=== PATIENT | male | born 1985 | race American Indian/Alaskan Native ===

== ENCOUNTER 2016-12-27 09:28 | Emergency (ER) | payer OTHER ==
[2016-12-27 10:07] VITALS: BP 145/111
== END 2016-12-27 10:00 | disposition left against medical advice (07) ==
LOC: ED 09:28
DX: R56.9 Unspecified convulsions (principal); Z53.21 Procedure and treatment not carried out due to patient leaving prior to being seen by health care provider

== ENCOUNTER 2017-03-06 16:29 | Emergency (ER) | payer OTHER ==
[2017-03-06 17:46] VITALS: BP 154/107
[2017-03-06 18:43] LABS: Bilirubin,Urine NEG (Negative); Blood,Urine SM (Negative); Ketones,Urine NEG (Negative); Leukocyte Esterase,Urine NEG (Negative); Nitrite,Urine NEG (Negative); Urobilinogen,Urine < 2.0 mg/dL (<2.0)
[2017-03-06 18:56] LABS: Hematocrit 30.5 % (35.5-45.6); Hemoglobin 9.9 gm/dl (11.8-15.2); Mean Corpuscular HGB Conc 33 % (32-34); Mean Corpuscular Volume 77 fl (84-94); Platelet Count 394 K/mm3 (140-440); Red Blood Count 3.95 M/mm3 (3.65-5.03); White Blood Count 6.3 K/mm3 (4.5-11.0)
[2017-03-06 18:58] LABS: Mean Corpuscular Hemoglobin 25 pg (28-32); Red Cell Distribution Width 25.5 % (13.2-15.2)
[2017-03-06 19:27] LABS: Anion Gap 28 mmol/L; BUN/Creatinine Ratio 7.27; Blood Urea Nitrogen 8 mg/dL (9-20); Calcium 9.6 mg/dL (8.4-10.2); Carbon Dioxide 19 mmol/L (22-30); Chloride 99.4 mmol/L (98-107); Glucose 115 mg/dL (75-100); Potassium 4.4 mmol/L (3.6-5.0); Sodium 142 mmol/L (137-145)
[2017-03-06 19:54] LABS: Basophils % (Manual) 0 % (0.0-1.8); Blastocytes % (Manual) 0 %
[2017-03-06 19:55] LABS: Anisocytosis 2+; Diff Status Complete; Microcytosis Few
== END 2017-03-07 00:10 | disposition left against medical advice (07) ==
LOC: ED 16:29
DX: M62.81 Muscle weakness (generalized) (principal); K21.9 Gastro-esophageal reflux disease without esophagitis; I10 Essential (primary) hypertension; F12.90 Cannabis use, unspecified, uncomplicated; F43.10 Post-traumatic stress disorder, unspecified; Z87.891 Personal history of nicotine dependence; Z53.21 Procedure and treatment not carried out due to patient leaving prior to being seen by health care provider
CPT/HCPCS: 36415; 80048; 81001; 85007; 85025

== ENCOUNTER 2020-04-26 01:47 | Emergency (ER) | payer OTHER ==
[2020-04-26] MEDS ORDERED: levETIRAcetam 1000 MG/NS 0.75% 1,000 MG/100 ML BAG IV ONE (03:30)
--- NOTE | 2020-04-27 16:29 | Cat Scan Report ---
CT HEAD WITHOUT CONTRAST INDICATION / CLINICAL INFORMATION: Seizure, with a history of previous seizures.. TECHNIQUE: All CT scans at this location are performed using CT dose reduction for ALARA by means of automated e xposure control. COMPARISON: CT dated 02/03/16 FINDINGS: HEMORRHAGE: None. EXTRA-AXIAL SPACES: Normal in size and morphology for the patient's age. VENTRICULAR SYSTEM: Normal in size and morphology for the patient's age. CEREBRAL PARENCHYMA: Encephalomalacia of the inferior right frontal lobe is unchanged. No acute wily torial infarct. MIDLINE SHIFT / HERNIATION: None. CEREBELLUM / BRAINSTEM: No significant abnormality. ORBITS: Normal as visualized. SOFT TISSUES: No significant abnormality. SKULL: No significant abnormality. PARANASAL SINUSES / MASTOID AIR CELLS: Normal as visualized. ADDITIONAL FINDINGS: None. IMPRESSION: 1. No acute intracranial abnormality. 2. Encephalomalacia of the inferior right frontal lobe, unchanged. Signer Name: Ana Paula Rossi MD Signed: 04/26/2020 4:51 AM Workstation Name: [id number]
--- NOTE | 2020-04-27 17:55 | Cat Scan Report ---
CT CERVICAL SPINE: 04/26/2020 INDICATION / CLINICAL INFORMATION: ETOH. COMPARISON: None available. FINDINGS: CT images of the cervical spine were obtained. Images are evaluated in the axial, coronal, and sagitt al planes. This exam is provided for interpretation on 04/27/2020 at 1607 hours. There is no evidence of acute abnormality. Slight reversal of cervical lordosis is centered at the C5 level. Some degenerative disc space narrowing and facet degenerative changes are present in the mid cervical spine. Incidental note is made of some dystrophic calcification in the region of the right neural foramina a t the C5-6 and C6-7 levels. : . CRANIOCERVICAL JUNCTION: Unremarkable. PARASPINAL STRUCTURES: No acute abnormality. IMPRESSION: No acute abnormality. All CT scans at this location are performed using dose reduction to ALARA by means of automated expos ure control. Signer Name: Theodore Villasenor MD Signed: 04/27/2020 5:50 PM Workstation Name: [id number]
[2020-05-02 12:17] LABS: BUN/Creatinine Ratio 10; Blood Urea Nitrogen 8 mg/dL (9-20)
[2020-05-02 12:18] LABS: Calcium 9.1 mg/dL (8.4-10.2)
[2020-05-02 13:07] LABS: Hematocrit 32.8 % (35.5-45.6); Hemoglobin 10.6 gm/dl (11.8-15.2); Mean Corpuscular HGB Conc 32 % (32-34); Mean Corpuscular Volume 79 fl (84-94); Red Blood Count 4.16 M/mm3 (3.65-5.03); Red Cell Distribution Width 20.7 % (13.2-15.2)
[2020-05-02 13:08] LABS: Eosinophils # (Auto) 0.1 K/mm3 (0.0-0.4); Eosinophils % (Auto) 1.6 % (0.0-4.3); Lymphocytes # (Auto) 2.1 K/mm3 (1.2-5.4); Lymphocytes % (Auto) 46.5 % (13.4-35.0); Monocytes # (Auto) 0.4 K/mm3 (0.0-0.8); Monocytes % (Auto) 8.1 % (0.0-7.3); Platelet Count 245 K/mm3 (140-440)
[2020-05-03 11:28] LABS: Creatine Kinase MB 3.9 ng/mL (0.0-4.0)
== END 2020-04-26 15:00 | disposition home or self-care (01) ==
LOC: ED 01:47
DX: G40.909 Epilepsy, unspecified, not intractable, without status epilepticus (principal)
CPT/HCPCS: 36415; 70450; 72125; 80048; 82550; 82553; 83735; 85025; 93005; 99284; J1953; 80320; G0480

== ENCOUNTER 2020-05-11 20:22 | Emergency (ER) | payer OTHER ==
[2020-05-11] MEDS ORDERED: levETIRAcetam 1000 MG/NS 0.75% 1,000 MG/100 ML BAG IV ONE (20:33)
[2020-05-11] MEDS ORDERED: SODIUM CHLORIDE 0.9% 1000 ML 1,000 ML IV ONE (20:33)
[2020-05-11] MEDS ORDERED: LORazepam 2 MG/ML VIAL IV PRN ×3 (20:35)
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
[2020-05-11 21:25] LABS: Hematocrit 34.3 % (35.5-45.6); Hemoglobin 11.1 gm/dl (11.8-15.2); Mean Corpuscular HGB Conc 32 % (32-34); Mean Corpuscular Volume 80 fl (84-94); Platelet Count 221 K/mm3 (140-440); Red Blood Count 4.32 M/mm3 (3.65-5.03)
[2020-05-11 21:38] LABS: Red Cell Distribution Width 20.6 % (13.2-15.2)
[2020-05-11 21:45] LABS: Alanine Aminotransferase 39 units/L (7-56); Albumin 4.4 g/dL (3.9-5); BUN/Creatinine Ratio 22; Blood Urea Nitrogen 26 mg/dL (9-20); Calcium 8.6 mg/dL (8.4-10.2); Hemolysis Index 14
[2020-05-11 22:40] LABS: Amphetamine Screen,Urine PRESUMPTIVE NEGATIVE; Benzodiazepines Screen,Urine PRESUMPTIVE NEGATIVE; Cannabinoid Screen,Urine PRESUMPTIVE NEGATIVE; Cocaine Screen,Urine PRESUMPTIVE NEGATIVE; Methadone Screen,Urine PRESUMPTIVE NEGATIVE; Opiate Screen,Urine PRESUMPTIVE NEGATIVE
[2020-05-11 22:50] LABS: Bilirubin,Urine NEG (Negative); Blood,Urine NEG (Negative); Color,Urine Straw (Yellow); Protein,Urine <15 mg/dL mg/dL (Negative); RBC,Urine < 1.0 /HPF (0.0-6.0); Urobilinogen,Urine < 2.0 mg/dL (<2.0)
--- NOTE | 2020-05-11 22:53 | Cat Scan Report ---
CT head/brain wo con INDICATION / CLINICAL INFORMATION: Seizure. TECHNIQUE: Axial CT imaging of the brain was obtained without contrast. Coronal and sagittal reformatted imaging obtained and reviewed. All CT scans at this location are performed using CT dose reduction for ALAR A by means of automated exposure control. COMPARISON: Prior head CT 04/26/2020 FINDINGS: No intracranial hemorrhage, mass, or midline shift is noted. No extra-axial fluid collection or sugge stion of acute territorial infarction. The ventricular system and basilar cisterns are unremarkable. There is mild to moderate cerebral and cerebellar atrophy, unchanged from prior exam. There is focal encephalomalacia in the inferior right frontal lobe unchanged from prior exam. Visualized paranasal sinuses and mastoid air cells are well aerated and grossly clear. No calvarial a bnormality noted. No soft tissue abnormality. IMPRESSION: 1. No acute intracranial abnormality. No interval change. Signer Name: Cristy Bowen MD Signed: 05/11/2020 10:48 PM Workstation Name: [id number]
[2020-05-11 23:25] LABS: Basophils % (Manual) 0 % (0.0-1.8); Eosinophils % (Manual) 0 % (0.0-4.3); Total Cells Counted 100
[2020-05-11 23:26] LABS: Anisocytosis 1+; Hypochromasia 1+; Ovalocytes Rare; Platelet Estimate Consistent w Auto
[2020-05-11] MEDS ORDERED: THIAMINE 100 MG, FOLIC ACID 1 MG, MULTIPLE VITAMIN INJ, ADULT 10 ML in SODIUM CHLORIDE ... IV ONE (23:43)
[2020-05-12 12:39] VITALS: BP 129/76
== END 2020-05-12 15:30 | disposition home or self-care (01) ==
LOC: ED 20:22
DX: R56.9 Unspecified convulsions (principal); F10.129 Alcohol abuse with intoxication, unspecified; I10 Essential (primary) hypertension; K21.9 Gastro-esophageal reflux disease without esophagitis; F43.11 Post-traumatic stress disorder, acute; F17.200 Nicotine dependence, unspecified, uncomplicated; F12.10 Cannabis abuse, uncomplicated; Z79.899 Other long term (current) drug therapy
CPT/HCPCS: 36415; 36569; 70450; 80053; 80307; 81001; 83735; 84100; 85007; 85025; 96365; 96367; 96375; 99285; J1953; J2060; J3411; J7030; 80320; G0480

== ENCOUNTER 2020-05-13 02:00 | Emergency (ER) | payer OTHER ==
--- NOTE | 2020-05-13 05:37 | Cat Scan Report ---
CT head/brain wo con INDICATION / CLINICAL INFORMATION: Recurring falls, E.T.O.H. on board, now with head pain.. TECHNIQUE: Axial CT imaging of the brain was obtained without contrast. Coronal and sagittal reformatted imaging obtained and reviewed. All CT scans at this location are performed using CT dose reduction for ALAR A by means of automated exposure control. COMPARISON: 05/11/[address] FINDINGS: No intracranial hemorrhage, mass, or midline shift. No extra-axial fluid collection or suggestion of acute infarction. Ventricular system and basilar cisterns are unremarkable. Focal encephalomalacia seen in the inferior right frontal lobe is unchanged. Prominent cerebral and c erebellar atrophy for the patient's young age of 34 years. Visualized paranasal sinuses and mastoid air cells are well aerated and clear. No calvarial fracture. IMPRESSION: 1. No acute intracranial abnormality. Signer Name: Cristy Bowen MD Signed: 05/13/2020 5:32 AM Workstation Name: [id number]
--- NOTE | 2020-05-13 05:39 | Cat Scan Report ---
CT cervical spine wo con INDICATION / CLINICAL INFORMATION: Recurring falls, E.T.O.H. on board, now with neck pain.. TECHNIQUE: Axial CT imaging of the cervical spine was obtained without contrast. Coronal and sagittal reformatte d imaging obtained and reviewed. All CT scans at this location are performed using CT dose reduction for ALARA by means of automated exposure control. COMPARISON: Prior CT cervical spine 04/26/2020 FINDINGS: No cervical spine fracture is noted. Alignment is normal. Mild degenerative disc disease is present at C5-C6. Mild spondylitic change noted throughout the mid cervical spine. Paravertebral soft tissues are unremarkable. Visualized lung apices are clear. IMPRESSION: 1. No cervical spine fracture or traumatic malalignment. 2. Mild degenerative disc disease and spondylitic change of the mid cervical spine. Signer Name: Cristy Bowen MD Signed: 05/13/2020 5:35 AM Workstation Name: [id number]
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
[2020-05-13 09:41] LABS: Basophils % (Auto) 0.3 % (0.0-1.8); Eosinophils % (Auto) 0.5 % (0.0-4.3); Hematocrit 30.9 % (35.5-45.6); Hemoglobin 10.5 gm/dl (11.8-15.2); Lymphocytes # (Auto) 1.4 K/mm3 (1.2-5.4); Lymphocytes % (Auto) 17.5 % (13.4-35.0); Mean Corpuscular HGB Conc 34 % (32-34); Mean Corpuscular Volume 77 fl (84-94); Monocytes # (Auto) 0.7 K/mm3 (0.0-0.8); Monocytes % (Auto) 9.2 % (0.0-7.3); Platelet Count 207 K/mm3 (140-440)
[2020-05-13 09:49] LABS: Red Cell Distribution Width 20.2 % (13.2-15.2)
[2020-05-13 09:59] LABS: Alanine Aminotransferase 29 units/L (7-56); Albumin 4.2 g/dL (3.9-5); BUN/Creatinine Ratio 16; Blood Urea Nitrogen 13 mg/dL (9-20); Calcium 9.3 mg/dL (8.4-10.2); Hemolysis Index 6
[2020-05-13] MEDS ORDERED: THIAMINE 100 MG, FOLIC ACID 1 MG, MULTIPLE VITAMIN INJ, ADULT 10 ML in SODIUM CHLORIDE ... IV ONE (10:30)
[2020-05-13 15:37] VITALS: BP 165/93
== END 2020-05-13 19:30 | disposition home or self-care (01) ==
LOC: ED 02:00
DX: S09.90XA Unspecified injury of head, initial encounter (principal); F10.129 Alcohol abuse with intoxication, unspecified; I10 Essential (primary) hypertension; K21.9 Gastro-esophageal reflux disease without esophagitis; R56.9 Unspecified convulsions; F17.200 Nicotine dependence, unspecified, uncomplicated; Z98.890 Other specified postprocedural states; Z79.899 Other long term (current) drug therapy; W06.XXXA Fall from bed, initial encounter; Y93.89 Activity, other specified; Y92.89 Other specified places as the place of occurrence of the external cause; Y99.8 Other external cause status
CPT/HCPCS: 36415; 70450; 72125; 80053; 85025; 96365; 96366; 99285; J3411; J7030; 80320; G0480

== ENCOUNTER 2020-05-24 03:47 | Emergency (ER) | payer OTHER ==
[2020-05-24] MEDS ORDERED: THIAMINE 100 MG, FOLIC ACID 1 MG, MULTIPLE VITAMIN INJ, ADULT 10 ML in SODIUM CHLORIDE ... IV ONE (03:55)
[2020-05-24] MEDS ORDERED: levETIRAcetam 1000 MG/NS 0.75% 1,000 MG/100 ML BAG IV ONE (03:55)
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
[2020-05-24 04:49] LABS: Basophils # (Auto) 0.1 K/mm3 (0.0-0.1); Basophils % (Auto) 2.3 % (0.0-1.8); Eosinophils # (Auto) 0.1 K/mm3 (0.0-0.4); Eosinophils % (Auto) 1.6 % (0.0-4.3); Hematocrit 33.6 % (35.5-45.6); Hemoglobin 10.5 gm/dl (11.8-15.2); Lymphocytes # (Auto) 1.9 K/mm3 (1.2-5.4); Mean Corpuscular HGB Conc 31 % (32-34); Mean Corpuscular Volume 80 fl (84-94); Monocytes # (Auto) 0.3 K/mm3 (0.0-0.8); Monocytes % (Auto) 4.1 % (0.0-7.3); Platelet Count 306 K/mm3 (140-440); Red Blood Count 4.23 M/mm3 (3.65-5.03)
[2020-05-24 04:53] LABS: Red Cell Distribution Width 22.5 % (13.2-15.2)
[2020-05-24 05:01] LABS: BUN/Creatinine Ratio 13; Blood Urea Nitrogen 10 mg/dL (9-20); Calcium 8.7 mg/dL (8.4-10.2); Hemolysis Index 3
[2020-05-24] MEDS ORDERED: levETIRAcetam 500 MG TAB PO ONE (05:16)
[2020-05-24 19:03] VITALS: BP 156/104
== END 2020-05-24 19:13 | disposition home or self-care (01) ==
LOC: ED 03:47
DX: G40.909 Epilepsy, unspecified, not intractable, without status epilepticus (principal); F10.129 Alcohol abuse with intoxication, unspecified; K21.9 Gastro-esophageal reflux disease without esophagitis; F43.10 Post-traumatic stress disorder, unspecified; F17.200 Nicotine dependence, unspecified, uncomplicated; Z91.14 Patient's other noncompliance with medication regimen; Z79.899 Other long term (current) drug therapy
CPT/HCPCS: 36415; 80048; 83735; 85025; 96374; 99284; J3411; J7030; 80320; G0480

== ENCOUNTER 2020-06-11 16:53 | Emergency (ER) | payer OTHER ==
[2020-06-11] MEDS ORDERED: THIAMINE 100 MG, FOLIC ACID 1 MG, MULTIPLE VITAMIN INJ, ADULT 10 ML in SODIUM CHLORIDE ... IV ONE (17:48)
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
[2020-06-11] MEDS ORDERED: levETIRAcetam 1000 MG/NS 0.75% 1,000 MG/100 ML BAG IV ONE (18:00)
[2020-06-11 19:34] LABS: Basophils % (Auto) 0.6 % (0.0-1.8); Eosinophils % (Auto) 0.1 % (0.0-4.3); Hematocrit 31.9 % (35.5-45.6); Hemoglobin 10.2 gm/dl (11.8-15.2); Lymphocytes # (Auto) 2.6 K/mm3 (1.2-5.4); Lymphocytes % (Auto) 35.9 % (13.4-35.0); Mean Corpuscular HGB Conc 32 % (32-34); Mean Corpuscular Volume 80 fl (84-94); Monocytes # (Auto) 0.6 K/mm3 (0.0-0.8); Monocytes % (Auto) 7.7 % (0.0-7.3); Platelet Count 264 K/mm3 (140-440); Red Blood Count 3.98 M/mm3 (3.65-5.03)
[2020-06-11 19:44] LABS: Red Cell Distribution Width 22.8 % (13.2-15.2)
[2020-06-11 19:52] LABS: BUN/Creatinine Ratio 16; Blood Urea Nitrogen 13 mg/dL (9-20); Hemolysis Index 3
--- NOTE | 2020-06-11 20:14 | Cat Scan Report ---
CT head/brain wo con INDICATION / CLINICAL INFORMATION: 34 years Male; seizure. TECHNIQUE: Routine CT head without contrast. All CT scans at this location are performed using CT dos e reduction for ALARA by means of automated exposure control. COMPARISON: 07/13/2019 FINDINGS: BRAIN / INTRACRANIAL CONTENTS: Subtle malacia seen in the anterior, inferior right frontal lobe-would question history of prior trauma. Similar findings seen on prior. Otherwise, no acute hemorrhage, mass effect, midline shift, hydrocephalus, or acute, large territori al infarct. Mild, diffuse cerebral atrophy seen for a patient this age. No significant white matter abnormality seen. CRANIOCERVICAL JUNCTION: No significant abnormality. ORBITS: No significant abnormality of visualized orbits. SINUSES / MASTOIDS: No significant abnormality in the visualized paranasal sinuses or mastoid air brandi ls. ADDITIONAL FINDINGS: None. IMPRESSION: 1. No focal mass, hemorrhage, hydrocephalus, or acute, large territorial infarct. Signer Name: Ozzie Higginbotham MD, III Signed: 06/11/2020 8:09 PM Workstation Name: [id number]
[2020-06-11] MEDS ORDERED: LORazepam 2 MG/ML VIAL IV ONE (20:35)
[2020-06-11] MEDS ORDERED: ZIPRASIDONE MESYLATE 20 MG VIAL IM ONE ×2 (20:49→20:54)
[2020-06-11] MEDS ORDERED: WATER FOR INJ Sterile (PF) 10 ML ONE (20:49)
[2020-06-12 12:47] VITALS: BP 160/100
== END 2020-06-12 13:36 | disposition home or self-care (01) ==
LOC: ED 16:53
DX: R56.9 Unspecified convulsions (principal); F10.129 Alcohol abuse with intoxication, unspecified; I10 Essential (primary) hypertension; K21.9 Gastro-esophageal reflux disease without esophagitis; F12.10 Cannabis abuse, uncomplicated; Z98.890 Other specified postprocedural states; Z79.899 Other long term (current) drug therapy
CPT/HCPCS: 36415; 70450; 80048; 85025; 96365; 96366; 96367; 96372; 96375; 99284; J1953; J2060; J3411; J3486; J7030; 80320; G0480

== ENCOUNTER 2020-06-21 15:46 | Emergency (ER) | payer OTHER ==
[2020-06-21 17:04] VITALS: BP 139/95
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
--- NOTE | 2020-06-21 18:03 | Cat Scan Report ---
CT BRAIN: 06/21/2020 INDICATION / CLINICAL INFORMATION: Trauma.. COMPARISON: 06/11/2020 FINDINGS: BRAIN/INTRACRANIAL STRUCTURES: Unenhanced CT images of the brain were obtained and compared to the pr ior exam from 06/11/2020. There has been no change. Again seen is pronounced diffuse cerebral and cerebellar atrophy. Chronic encephalomalacia in the rig ht inferior temporal lobe is again noted. There is no evidence of acute hepatic injury, hemorrhage, or mass. There are no abnormal extra-axial fluid collections. EXTRACRANIAL STRUCTURES: Unremarkable. IMPRESSION: No acute abnormality. Prominent diffuse cerebral atrophy for age. No change when compared to 06/11/2020. All CT scans at this location are performed using dose reduction to ALARA by means of automated expos ure control. Signer Name: Theodore Villasenor MD Signed: 06/21/2020 5:58 PM Workstation Name: [id number]
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
[2020-06-21 18:15] LABS: BUN/Creatinine Ratio 14; Blood Urea Nitrogen 11 mg/dL (9-20); Calcium 8.8 mg/dL (8.4-10.2); Hemolysis Index 3
== END 2020-06-21 18:35 | disposition home or self-care (01) ==
LOC: ED 15:46
DX: S50.811A Abrasion of right forearm, initial encounter (principal); S09.90XA Unspecified injury of head, initial encounter; F10.920 Alcohol use, unspecified with intoxication, uncomplicated; I10 Essential (primary) hypertension; K21.9 Gastro-esophageal reflux disease without esophagitis; G40.909 Epilepsy, unspecified, not intractable, without status epilepticus; F12.10 Cannabis abuse, uncomplicated; Z79.899 Other long term (current) drug therapy; W18.30XA Fall on same level, unspecified, initial encounter; Y93.89 Activity, other specified; Y92.89 Other specified places as the place of occurrence of the external cause; Y99.8 Other external cause status
CPT/HCPCS: 36415; 70450; 72125; 80048; 80320; 82550; 83735; 93005; G0480

== ENCOUNTER 2022-03-08 16:25 | Emergency (ER) | payer OTHER ==
[2022-03-08] MEDS ORDERED: levETIRAcetam 1000 MG/NS 0.75% 1,000 MG/100 ML BAG IV ONE (18:30)
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
--- NOTE | 2022-03-08 19:18 | Cat Scan Report ---
CT head/brain wo con INDICATION / CLINICAL INFORMATION: 36 years Male; seizure d/o; L sided headache s/p fall, head traum. TECHNIQUE: Routine CT head without contrast. All CT scans at this location are performed using CT dos e reduction for ALARA by means of automated exposure control. COMPARISON: 06/11/2020 FINDINGS: BRAIN / INTRACRANIAL CONTENTS: Encephalomalacia is seen anteromedially in the right frontal lobe, inv olving gyrus rectus and the adjacent orbital gyral. Would question prior trauma. Similar findings see n on prior. No acute hemorrhage, mass effect, midline shift, hydrocephalus, or acute, large territori al infarct. Moderate cerebral and cerebellar atrophy. Mild to moderate degree of hippocampal atrophy suggested bi laterally. There are [id number] areas of decreased attenuation in the white matter of the cerebral hemisph eres. These are nonspecific findings and may be related to microangiopathy (hypertension, diabetes, a therosclerosis), given the patient's age. It might be difficult to evaluate for small areas of ischem ia without diffusion imaging by MRI. CRANIOCERVICAL JUNCTION: No significant abnormality. ORBITS: No significant abnormality of visualized orbits. SINUSES / MASTOIDS: Mucous tension cyst/polyp is seen in the left maxillary antrum. Mild mucosal thic kening seen in the left mastoids. ADDITIONAL FINDINGS: Atherosclerotic disease is seen in the anterior and posterior circulation. IMPRESSION: 1. No focal mass, hemorrhage, hydrocephalus, or acute, large territorial infarct. Signer Name: Ozzie Higginbotham MD, III Signed: 03/08/2022 7:14 PM Workstation Name: [id number]
--- NOTE | 2022-03-08 19:21 | Cat Scan Report ---
CT cervical spine wo con INDICATION / CLINICAL INFORMATION: 36 years Male; seizure d/o; L sided neck s/p fall, neck trauma. TECHNIQUE: Axial CT images of the cervical spine were obtained. Sagittal and coronal reformatted images were pr oduced. All CT scans at this location are performed using CT dose reduction for ALARA by means of aut omated exposure control. COMPARISON: 06/21/2020 FINDINGS: POST-SURGICAL CHANGES: None. ALIGNMENT: No significant abnormality. VERTEBRAE: No signs of fracture. Vertebral bodies are grossly normal in height throughout. Moderate to marked osseous foraminal narrowing seen on the left at C5-6. Mild findings seen at C4-5 a nd C6-7. Moderate to marked osseous foraminal narrowing noted on the right at C5-6 and C6-7. Mild fin dings seen on the right at C4-5. INTRAVERTEBRAL DISCS: Disc space narrowing seen at C5-6. Mild disc disease seen at multiple levels. N o significant canal stenosis appreciated. PARASPINAL SOFT TISSUES: No significant abnormality. ADDITIONAL FINDINGS: None. IMPRESSION: 1. No signs of acute bony trauma to the cervical spine. Signer Name: Ozzie Higgibnotham MD, III Signed: 03/08/2022 7:17 PM Workstation Name: [id number]
[2022-03-08 19:49] LABS: Hematocrit 34.4 % (35.5-45.6); Hemoglobin 11.3 gm/dl (11.8-15.2); Mean Corpuscular HGB Conc 33 % (32-34); Mean Corpuscular Volume 93 fl (84-94); Platelet Count 275 K/mm3 (140-440); Red Blood Count 3.68 M/mm3 (3.65-5.03)
[2022-03-08 19:51] LABS: Red Cell Distribution Width 20.3 % (13.2-15.2)
[2022-03-08 19:59] LABS: BUN/Creatinine Ratio 9; Blood Urea Nitrogen 8 mg/dL (9-20); Calcium 8.9 mg/dL (8.4-10.2); Hemolysis Index 23
[2022-03-08] MEDS ORDERED: LORazepam 2 MG/ML VIAL IV ONE (20:08)
[2022-03-08] MEDS ORDERED: HALOPERIDOL LACTATE 5 MG/1 ML INJ IM ONE (20:10)
[2022-03-08 20:23] LABS: Eosinophils % (Manual) 0 % (0.0-4.3); Total Cells Counted 100
[2022-03-08 20:24] LABS: Anisocytosis 1+; Platelet Estimate Consistent w Auto
[2022-03-09] MEDS ORDERED: levETIRAcetam 500 MG TAB PO SCH (10:00)
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
--- NOTE | 2022-03-09 12:49 | Event Note ---
Date: 03/09/22 Patient cleared by psychiatry. Stable for discharge.
[2022-03-09 16:04] VITALS: BP 142/96
== END 2022-03-09 16:06 | disposition home or self-care (01) ==
LOC: ED 16:25
DX: F10.10 Alcohol abuse, uncomplicated (principal); R56.9 Unspecified convulsions; I10 Essential (primary) hypertension; K21.9 Gastro-esophageal reflux disease without esophagitis; Z13.30 Encounter for screening examination for mental health and behavioral disorders, unspecified
CPT/HCPCS: 36415; 70450; 72125; 80048; 85007; 85025; 96372; 96374; 99285; J1630; J2060; 80320; G0480